=== PATIENT | female | born 1935 | race Caucasian/White ===

== ENCOUNTER → 2017-03-11 | Outpatient (CLI) | payer OTHER ==
[~2017-03-11] MED LIST: APIX2.5T PO; APIX5TAB PO; BENZ100C4 PO; CEP500 PO; CHOL10005 PO; CLAR-13 PO; CYAN50008 PO; ESTR2TAB26 PO; FURO-47 PO; GLUC100026 PO; HYDR-385 PO; HYDR-4309 PO; IBUP600T22 PO; LEVO175T42 PO; LEVO200T50 PO; LOR5/325 PO; MELO-205 PO; METH4TAB66 PO; MOD PO; MULT-1372 PO; OMEG-11 PO; OMEP-125 PO; PHEN100C82 PO; PNEU0.5D3 IM; POTA-23 PO; SULF-198 PO; [UNRECOGNIZED DRUG - REMARK] PO
[2017-03-11 11:54] LABS: PLATELET COUNT, AUTOMATED 281 K/uL (150-450)
== END ==
LOC: LAB 11:17
PROVIDERS: ATTEND Internal Medicine
DX: I10 Essential (primary) hypertension (principal); E03.9 Hypothyroidism, unspecified; I48.91 Unspecified atrial fibrillation; M19.90 Unspecified osteoarthritis, unspecified site; E11.9 Type 2 diabetes mellitus without complications; R56.9 Unspecified convulsions; R29.6 Repeated falls
CPT/HCPCS: 36415; 80185; 82040; 82247; 82310; 82374; 82435; 82565; 82947; 84075; 84132; 84155; 84295; 84443; 84450; 84460; 84520; 84550; 85025

== ENCOUNTER → 2017-04-09 | Outpatient (CLI) | payer OTHER ==
[~2017-04-09] MED LIST changes: +ACET500T68 PO; +CELE-1 PO; +CYAN100088 PO; +GLUC-396 PO; +HEMP PO; +LACT1CAP6 PO; +LOPE-111 PO; +[UNRECOGNIZED DRUG - CODE] PO; +[UNRECOGNIZED DRUG - OTHER] PO; +[UNRECOGNIZED DRUG - OTHER] TOP
[2017-04-09 13:46] LABS: PLATELET COUNT, AUTOMATED 321 K/uL (150-450)
== END ==
LOC: LAB 12:09
PROVIDERS: ATTEND Family Medicine
DX: I10 Essential (primary) hypertension (principal); E03.9 Hypothyroidism, unspecified; E53.8 Deficiency of other specified B group vitamins
CPT/HCPCS: 36415; 82040; 82247; 82310; 82374; 82435; 82565; 82607; 82947; 84075; 84132; 84155; 84295; 84443; 84450; 84460; 84520; 85025

== ENCOUNTER → 2017-04-24 | Outpatient (REF) | payer OTHER ==
[~2017-04-24] MED LIST changes: +DUL20 PO
== END ==
LOC: ZZSENDIN 12:50
PROVIDERS: ATTEND Family Medicine
DX: R19.7 Diarrhea, unspecified (principal)
CPT/HCPCS: 83630; 87045; 87205

== ENCOUNTER → 2017-06-16 | Outpatient (CLI) | payer OTHER ==
[2017-06-16 17:48] LABS: PLATELET COUNT, AUTOMATED 233 K/uL (150-450)
== END ==
LOC: LAB 16:29
PROVIDERS: ATTEND Family Medicine
DX: I10 Essential (primary) hypertension (principal); R29.6 Repeated falls; E03.9 Hypothyroidism, unspecified
CPT/HCPCS: 36415; 82040; 82247; 82310; 82374; 82435; 82565; 82947; 84075; 84132; 84155; 84295; 84443; 84450; 84460; 84520; 85025

== ENCOUNTER → 2017-12-02 | Outpatient (CLI) | payer OTHER ==
[~2017-12-02] MED LIST changes: +DICL100G39 TOP; +FLU180SY11 IM; -HYDR-4309 PO; +HYDR-653 PO; +POTA-28 PO
[2017-12-02 16:55] LABS: PLATELET COUNT, AUTOMATED 208 K/uL (150-450)
== END ==
LOC: LAB 16:05
PROVIDERS: ATTEND Family Medicine
DX: E03.9 Hypothyroidism, unspecified (principal); I10 Essential (primary) hypertension
CPT/HCPCS: 36415; 82040; 82247; 82310; 82374; 82435; 82565; 82947; 84075; 84132; 84155; 84295; 84443; 84450; 84460; 84520; 85025

== ENCOUNTER 2018-05-24 21:09 | Emergency (ER) | payer MEDICARE, OTHER ==
[~2018-05-24 21:09] MED LIST changes: -CIPR-344 PO
[2018-05-24] MEDS ORDERED: NS(*) 0.9% 1000 ML BAG 1,000 ML IV ONE (21:20)
[2018-05-24 22:35] LABS: PLATELET COUNT, AUTOMATED 283 K/uL (150-450)
[2018-05-24 23:16] VITALS: BP 165/76
--- NOTE | 2018-05-25 00:06 | ER Report ---
History and Physical Time Seen By MD: 21:12 Hx. of Stated Complaint: DIARRHEA FOR THE PAST 6 DAYS BUT TODAY SHE STATES THAT SHE HAS NOT BEEN ABLE TO GET IT TO STOP HPI/ROS CHIEF COMPLAINT: Diarrhea and weakness HISTORY OF PRESENT ILLNESS: 83-year-old female brought in by EMS from home complaining of weakness and diarrhea for 6 days. It is been worse the last 24 hours. She's been unable to get off of the toilet because of the chronic diarrhea. She is wheelchair-bound and has weakness in her right lower extremity. She had total paralysis 3 years ago. Both of her lower extremities secondary to back problems. Patient denies recent travel exposure to ill contacts or consumption of bad food. Patient additionally denies recent use of antibiotics. She lives alone at home. Patient notes no vomiting. She's been drinking water, trying to keep herself hydrated. REVIEW OF SYSTEMS: Respiratory: No cough, no dyspnea. Cardiovascular: No chest pain, no palpitations. Gastrointestinal: As above Musculoskeletal: No back pain. Allergies: Coded Allergies: No Known Drug Allergies (Unverified , 10/13/16) Home Meds Active Scripts Ciprofloxacin Hcl 500 Mg Tab (CIPRO 500 MG TAB) 500 Mg Tablet, 500 MG PO BID for infection, #14 Prov:ALEXIS VALDES DO 05/25/18 Phenytoin Sodium Extended (DILANTIN) 100 Mg Capsule, 2 CAP PO QDAY for 90 Days, #180 CAPSULE Prov:KASSY DORSEY MD 04/07/18 Furosemide (FUROSEMIDE) 40 Mg Tablet, 1 TAB PO DAILY PRN for edema for 90 Days, #90 TAB 1 Refill Prov:KASSY DORSEY MD 04/02/18 Potassium Chloride (POTASSIUM CHLORIDE) 10 Meq Tablet.er, 2 TAB PO QDAY PRN for edema for 90 Days, #180 TAB Take along with furosemide Prov:KASSY DORSEY MD 03/04/18 Levothyroxine Sodium (LEVOTHYROXINE SODIUM) 175 Mcg Tablet, 175 MCG PO QDAY for 90 Days, #90 TAB 4 Refills Prov:KASSY DORSEY MD 03/04/18 Diclofenac Sodium 1% Gel (VOLTAREN 1% GEL) 100 Gm Gel..gram., 2 GM TOP QID for knee osteoarthritis for 30 Days, #1 TUBE 4 Refills Prov:KASSY DORSEY MD 10/14/17 Duloxetine Hcl (CYMBALTA) 20 Mg Capcr, 1 CAP PO QDAY for 90 Days, #90 CAP 4 Refills Prov:KASSY DORSEY MD 09/22/17 Amiloride/Hctz (AMILORIDE HCL-HCTZ 5-50 MG TAB) 1 Each Tab, 1 EACH PO QDAY for 90 Days, #90 TAB 4 Refills Prov:KASSY DORSEY MD 08/11/17 Apixaban (ELIQUIS) 5 Mg Tablet, 1 TAB PO BID for 90 Days, #180 TAB 4 Refills Prov:KASSY DORSEY MD 07/21/17 Reported Medications Psyllium Seed (with Sugar) (Metamucil Powder) 575 Gm Powder, 2 TSP PO DAILY Increase to BID 04/10/17 Lactobacillus Combination No.4 (PROBIOTIC) 1 Each Capsule, 1 TABCHEW PO BID, CAPSULE 04/10/17 [Canna XL Top 50mg] No Conflict Check, 1 TATE TOP PRN 04/10/17 [Canna XL-Hemp 5mg] No Conflict Check, 1-2 CAP PO DAILY 04/10/17 Loperamide Hcl (LOPERAMIDE) 2 Mg Tablet, 1-2 TAB PO DIRECTED 2 tabs after loose stool, 1 tab after each subsequent loose stool(not to exceed 8 tabs daily) 04/10/17 Glucosa Kamara 2KCL/Chondroitin Kamara (GLUCOSAMINE CHONDROITIN CAPLET) 1 Each Tablet, 1 TAB PO DAILY 04/10/17 Acetaminophen (TYLENOL EXTRA STRENGTH) 500 Mg Tablet, 2 TAB PO BID, TAB 04/10/17 [place]-3 Fatty Acids/Fish Oil (FISH OIL 1,000 MG CAPSULE) 1 Each Capsule, 1 EACH PO DAILY 10/13/16 Multivitamin (DAILY VALUE) 1 Each Tablet, 1 EACH PO QDAY 02/22/15 Reviewed Nurses Notes: Yes Old Medical Records Reviewed: Yes Hx Smoking: No Smoking Status: Never Smoker Hx Substance Use Disorder: No Hx Alcohol Use: No Constitutional Vital Sign - Last 24 Hours 05/24/18 05/24/18 05/24/18 05/24/18 21:12 21:12 21:30 21:39 Temp 99.0 Pulse 79 78 Resp 18 B/P (MAP) 143/93 (110) 143/93 157/62 (93) Pulse Ox 92 91 O2 Delivery Room Air 4/05/24/18 05/24/18 05/24/18 23:16 23:30 23:35 23:50 Pulse 76 87 75 B/P (MAP) 165/76 (105) Pulse Ox 88 92 93 05/25/18 05/25/18 05/25/18 00:05 00:20 00:50 Pulse 81 ? Pulse Ox 89 Physical Exam Vital signs stable, low-grade fever 99 0, pulse ox normal. Skin warm, dry, pink General Appearance: The patient is alert, has no immediate need for airway protection and no current signs of toxicity. No acute distress, wasn't cooperative, interactive, alert and oriented HEENT: Pupils equal and round no injection. Oropharynx without redness or exudate. His number injure moist Respiratory: Chest is non tender, lungs are clear to auscultation. Cardiac: regular rate and rhythm Gastrointestinal: Abdomen is soft and non tender, no masses, bowel sounds normal. Musculoskeletal: Neck: Neck is supple and non tender. Extremities have full range of motion and are non tender. 2+ edema bilaterally, Skin: No rashes or lesions. DIFFERENTIAL DIAGNOSIS: After history and physical exam differential diagnosis was considered for weakness including but not limited to electrolyte abnormal ity, depression, anxiety, CVA, spinal cord abnormality, and infectious causes. Medical Decision Making Data Points Result Diagram: 05/24/18222305/24/182223 Laboratory Hematology Test 05/24/18 22:24 05/24/18 23:00 05/24/18 23:12 05/25/18 00:00 Red Blood Count 4.29 M/uL (4.17-5.56) Mean Corpuscular Volume 98.4 fL (80.0-96.0) Mean Corpuscular Hemoglobin 33.0 pg (26.0-33.0) Mean Corpuscular Hemoglobin Concent 33.5 g/dL (32.0-36.0) Red Cell Distribution Width 14.4 % (11.5-14.5) Mean Platelet Volume 8.3 fL (7.2-11.1) Neutrophils (%) (Auto) 73.9 % (39.4-72.5) Lymphocytes (%) (Auto) 11.8 % (17.6-49.6) Monocytes (%) (Auto) 9.1 % (4.1-12.4) Eosinophils (%) (Auto) 4.7 % (0.4-6.7) Basophils (%) (Auto) 0.5 % (0.3-1.4) Nucleated RBC Relative Count (auto) 0.0 /100WBC Neutrophils # (Auto) 8.1 K/uL (2.0-7.4) Lymphocytes # (Auto) 1.3 K/uL (1.3-3.6) Monocytes # (Auto) 1.0 K/uL (0.3-1.0) Eosinophils # (Auto) 0.5 K/uL (0.0-0.5) Basophils # (Auto) 0.1 K/uL (0.0-0.1) Nucleated RBC Absolute Count (auto) 0.00 K/uL Sodium Level 137 mmol/L (137-145) Potassium Level 4.1 mmol/L (3.5-5.0) Chloride Level 100 mmol/L (98-107) Carbon Dioxide Level 28 mmol/L (22-31) Blood Urea Nitrogen 32 mg/dl (7-18) Creatinine 0.80 mg/dl (0.52-1.04) Glomerular Filtration Rate Calc > 60.0 Random Glucose 107 mg/dl (75-110) Calcium Level 9.7 mg/dl (8.4-10.2) Total Bilirubin 0.3 mg/dl (0.2-1.3) Aspartate Amino Transf (AST/SGOT) 38 U/L (0-35) Alanine Aminotransferase (ALT/SGPT) 49 U/L (0-56) Alkaline Phosphatase 182 U/L (0-126) Total Protein 8.7 g/dl (6.3-8.2) Albumin 4.5 g/dl (3.5-5.0) Amylase Level 147 U/L (0-110) Lipase 205 U/L (23-300) Urine Color Liz Urine Clarity Turbid Urine pH 6.0 pH (4.8-9.5) Urine Specific Noti 1.012 Urine Protein 30 mg/dL (NEGATIVE) Urine Glucose (UA) Negative mg/dL (NEGATIVE) Urine Ketones Negative mg/dL (NEGATIVE) Urine Blood Small (NEGATIVE) Urine Nitrite Positive (NEGATIVE) Urine Bilirubin Negative (NEGATIVE) Urine Urobilinogen Negative mg/dL (0.2-1.9) Urine Leukocyte Esterase Large (NEGATIVE) Urine RBC 17 /HPF (0-2/HPF) Urine WBC 495 /HPF (0-5/HPF) Urine WBC Clumps Many /HPF Urine Squamous Epithelial Cells Many /LPF (</=FEW) Urine Bacteria Many /HPF (NONE-FEW) Urine Mucus Few /HPF (NONE-FEW) Urine Yeast (Budding) Moderate /HPF Stool Occult Blood (IFOB) Positive (NEGATIVE) Stool Leukocytes, Qualitative Positive Clostridium Difficile Toxin A & B Negative Clostridium difficile Antigen Negative Phenytoin (Dilantin) Level < 3.0 ug/ml Phenytoin Last Dose Date . Chemistry Test 05/24/18 22:24 05/24/18 23:00 05/24/18 23:12 05/25/18 00:00 White Blood Count 11.0 k/uL (4.5-11.0) Red Blood Count 4.29 M/uL (4.17-5.56) Hemoglobin 14.2 g/dL (12.0-16.0) Hematocrit 42.2 % (34.0-47.0) Mean Corpuscular Volume 98.4 fL (80.0-96.0) Mean Corpuscular Hemoglobin 33.0 pg (26.0-33.0) Mean Corpuscular Hemoglobin Concent 33.5 g/dL (32.0-36.0) Red Cell Distribution Width 14.4 % (11.5-14.5) Platelet Count 283 K/uL (150-450) Mean Platelet Volume 8.3 fL (7.2-11.1) Neutrophils (%) (Auto) 73.9 % (39.4-72.5) Lymphocytes (%) (Auto) 11.8 % (17.6-49.6) Monocytes (%) (Auto) 9.1 % (4.1-12.4) Eosinophils (%) (Auto) 4.7 % (0.4-6.7) Basophils (%) (Auto) 0.5 % (0.3-1.4) Nucleated RBC Relative Count (auto) 0.0 /100WBC Neutrophils # (Auto) 8.1 K/uL (2.0-7.4) Lymphocytes # (Auto) 1.3 K/uL (1.3-3.6) Monocytes # (Auto) 1.0 K/uL (0.3-1.0) Eosinophils # (Auto) 0.5 K/uL (0.0-0.5) Basophils # (Auto) 0.1 K/uL (0.0-0.1) Nucleated RBC Absolute Count (auto) 0.00 K/uL Glomerular Filtration Rate Calc > 60.0 Calcium Level 9.7 mg/dl (8.4-10.2) Total Bilirubin 0.3 mg/dl (0.2-1.3) Aspartate Amino Transf (AST/SGOT) 38 U/L (0-35) Alanine Aminotransferase (ALT/SGPT) 49 U/L (0-56) Alkaline Phosphatase 182 U/L (0-126) Total Protein 8.7 g/dl (6.3-8.2) Albumin 4.5 g/dl (3.5-5.0) Amylase Level 147 U/L (0-110) Lipase 205 U/L (23-300) Urine Color Liz Urine Clarity Turbid Urine pH 6.0 pH (4.8-9.5) Urine Specific Noti 1.012 Urine Protein 30 mg/dL (NEGATIVE) Urine Glucose (UA) Negative mg/dL (NEGATIVE) Urine Ketones Negative mg/dL (NEGATIVE) Urine Blood Small (NEGATIVE) Urine Nitrite Positive (NEGATIVE) Urine Bilirubin Negative (NEGATIVE) Urine Urobilinogen Negative mg/dL (0.2-1.9) Urine Leukocyte Esterase Large (NEGATIVE) Urine RBC 17 /HPF (0-2/HPF) Urine WBC 495 /HPF (0-5/HPF) Urine WBC Clumps Many /HPF Urine Squamous Epithelial Cells Many /LPF (</=FEW) Urine Bacteria Many /HPF (NONE-FEW) Urine Mucus Few /HPF (NONE-FEW) Urine Yeast (Budding) Moderate /HPF Stool Occult Blood (IFOB) Positive (NEGATIVE) Stool Leukocytes, Qualitative Positive Clostridium Difficile Toxin A & B Negative Clostridium difficile Antigen Negative Phenytoin (Dilantin) Level < 3.0 ug/ml Phenytoin Last Dose Date . Toxicology Test 05/25/18 00:00 Phenytoin (Dilantin) Level < 3.0 ug/ml Phenytoin Last Dose Date . Urinalysis Test 05/24/18 23:00 Urine Color Liz Urine Clarity Turbid Urine pH 6.0 pH (4.8-9.5) Urine Specific Noti 1.012 Urine Protein 30 mg/dL (NEGATIVE) Urine Glucose (UA) Negative mg/dL (NEGATIVE) Urine Ketones Negative mg/dL (NEGATIVE) Urine Blood Small (NEGATIVE) Urine Nitrite Positive (NEGATIVE) Urine Bilirubin Negative (NEGATIVE) Urine Urobilinogen Negative mg/dL (0.2-1.9) Urine Leukocyte Esterase Large (NEGATIVE) Urine RBC 17 /HPF (0-2/HPF) Urine WBC 495 /HPF (0-5/HPF) Urine WBC Clumps Many /HPF Urine Squamous Epithelial Cells Many /LPF (</=FEW) Urine Bacteria Many /HPF (NONE-FEW) Urine Mucus Few /HPF (NONE-FEW) Urine Yeast (Budding) Moderate /HPF Microbiology Microbiology Date/Time Source Procedure Growth Status 05/24/18 23:12 Stool Gram Stain - Final Resulted 05/24/18 23:12 Stool Stool Culture - Preliminary NORMAL SO FAR, CULTURE SET UP LATE, C... Resulted 05/25/18 00:00 Clean Catch Midstream Ur Urine Culture - Preliminary Gram Negative Miguel A Resulted ED Course/Re-evaluation Clinical Indication for ER IV: Hydration, IV Access ED Course Patient was admitted to an examination room by EMS. H&P was done. The differential diagnoses was considered. Patient was treated with IV fluid hydration. Diagnostic studies were sent off. She has a urinary tract infection, and infectious diarrhea. I offered the patient admission because I think she is very weak and will not be able to care for herself well at home. She has severe weakness in her right lower extremity and is barely able to stand. She gets around with a walker and a wheelchair. Very insistent on going home. She'll be treated with Cipro for urinary tract infection, and infectious diarrhea. She is advised to increase her fluid intake. Patient advised a low threshold to return for any worsening. Decision to Disposition Date: May 25, 2018 Decision to Disposition Time: 00:35 Depart Departure Latest Vital Signs Vital Signs Date Time Temp Pulse Resp B/P (MAP) Pulse Ox O2 Delivery O2 Flow Rate FiO2 05/25/18 00:50 ??? 05/25/18 00:05 89 05/24/18 23:16 165/76 (105) 05/24/18 21:12 99.0 18 Room Air Impression: Primary Impression: Infectious diarrhea Additional Impressions: Urinary tract infection Hypertension Condition: Improved Disposition: HOME OR SELF-CARE Referrals: KASSY DORSEY MD (PCP) New Scripts Ciprofloxacin Hcl 500 Mg Tab (CIPRO 500 MG TAB) 500 Mg Tablet 500 MG PO BID for infection, #14 Prov: ALEXIS VALDES DO 05/25/18 Patient Instructions: Acute Diarrhea (ED), Clear Liquid Diet (ED), Urinary Tract Infection in Women (ED) Additional Instructions: Follow clear liquid diet for 48 hours, then advance to the brat diet, bananas, rice, applesauce and toast Follow-up with your primary care doctor in 2-3 days if unimproved Return to the ER for any worsening Problem Qualifiers Additional Impressions: Urinary tract infection Urinary tract infection type: acute cystitis Hematuria presence: without hematuria Qualified Codes: N30.00 - Acute cystitis without hematuria ALEXIS VALDES DO May 25, 2018 00:06
[2018-05-25] MEDS ORDERED: CIPROFLOXACIN 500 MG TAB PO ONE (00:35)
[2018-05-25] MEDS ORDERED: CIPR-344 PO (00:36)
== END 2018-05-25 01:05 | disposition home or self-care (01) ==
LOC: ER 21:22
DX: N30.00 Acute cystitis without hematuria (principal); A09 Infectious gastroenteritis and colitis, unspecified; I10 Essential (primary) hypertension
CPT/HCPCS: 80185; 81001; 82150; 82274; 83630; 83690; 85025; 87045; 87077; 87088; 87186; 87205; 87324; 87449; 96360; 99283; A9270; J7030; 82040; 82247; 82310; 82374; 82435; 82565; 82947; 84075; 84132; 84155; 84295; 84450; 84460; 84520

== ENCOUNTER → 2018-05-24 | Outpatient (CLI) | payer MEDICARE ==
[~2018-05-24] MED LIST changes: +CIPR-344 PO
== END ==
LOC: AMB 20:52
PROVIDERS: ATTEND Nurse Practitioner
DX: R19.7 Diarrhea, unspecified (principal)
CPT/HCPCS: A0425; A0429

== ENCOUNTER → 2018-05-25 | Outpatient (CLI) | payer MEDICARE ==
[~2018-05-25] MED LIST changes: +CIPR-344 PO
== END ==
LOC: AMB 01:02
PROVIDERS: ATTEND Nurse Practitioner
DX: E86.0 Dehydration (principal); R53.1 Weakness
CPT/HCPCS: A0425; A0428

== ENCOUNTER → 2018-07-07 | Outpatient (CLI) | payer OTHER ==
[~2018-07-07] MED LIST changes: +DIPH-1 PO
[2018-07-07 12:55] LABS: PLATELET COUNT, AUTOMATED 343 K/uL (150-450)
== END ==
LOC: LAB 12:42
PROVIDERS: ATTEND Family Medicine
DX: E03.9 Hypothyroidism, unspecified (principal); I10 Essential (primary) hypertension
CPT/HCPCS: 36415; 82310; 82374; 82435; 82565; 82947; 84132; 84295; 84443; 84520; 85025

== ENCOUNTER 2018-07-24 09:53 | Emergency (ER) | payer OTHER ==
--- NOTE | 2018-07-24 09:52 | ER Report ---
History and Physical Time Seen By MD: 10:18 HPI/ROS CHIEF COMPLAINT: Diarrhea HISTORY OF PRESENT ILLNESS: Patient is an 83-year-old female who states that she's been having watery diarrhea sometimes up to more than 10 or more episodes a day for the past few weeks. She has been seen by her primary care provider who recommended starting a [place] diet as well as starting Lomotil which patient states was initially working however she currently has no more this medication. She denies any recent travel history or antibiotic use. Last antibiotic use was in May 2018 for a "colitis". She is denying any abdominal pain. She denies nausea vomiting or diarrhea. She denies fevers or chills. She denies any chest pain or shortness of breath. Patient states that she is having incontinence of stool. She denies any specific triggers states that she can go hours without a bowel movement but sometimes has frequent bowel movements minutes after she had her last one. She is not on any laxatives. She does take Lasix for peripheral edema. She also is on potassium supplementation. REVIEW OF SYSTEMS: Constitutional: No fever, no chills. Eyes: No discharge. ENT: No sore throat. Cardiovascular: No chest pain, no palpitations. Respiratory: No cough, no shortness of breath. Gastrointestinal: No abdominal pain, no nausea, no vomiting, watery diarrhea Genitourinary: No hematuria. Musculoskeletal: No back pain. Skin: No rashes. Neurological: No headache. Allergies: Coded Allergies: No Known Drug Allergies (Unverified , 10/13/16) Home Meds Active Scripts Diphenoxylate Hcl/Atropine (LOMOTIL TABLET) 1 Each Tablet, 1 EACH PO Q4H PRN for DIARRHEA MDD 8 tabs, #16 TAB 0 Refills Prov:JUSTYN MYERS MD 07/24/18 Diphenoxylate Hcl/Atropine (LOMOTIL TABLET) 1 Each Tablet, 1 TAB PO BID PRN for DIARRHEA for 90 Days, #180 TAB Prov:KASSY DORSEY MD 07/15/18 Apixaban (ELIQUIS) 5 Mg Tablet, 1 TAB PO BID for 90 Days, #180 TAB 4 Refills Prov:KASSY DORSEY MD 07/13/18 Phenytoin Sodium Extended (DILANTIN) 100 Mg Capsule, 2 CAP PO QDAY for 90 Days, #180 CAPSULE 1 Refill Prov:KASSY DORSEY MD 07/09/18 Potassium Chloride (POTASSIUM CHLORIDE) 10 Meq Tablet.er, 3 TAB PO QDAY PRN for edema for 90 Days, #180 TAB Take along with furosemide Prov:KASSY DORSEY MD 07/07/18 Amiloride/Hctz (AMILORIDE HCL-HCTZ 5-50 MG TAB) 1 Each Tab, 0.5 TAB PO QDAY for 90 Days, #90 TAB 4 Refills Prov:KASSY DORSEY MD 07/07/18 Omeprazole (OMEPRAZOLE) 20 Mg Capsule.dr, 1 CAP PO DAILY for 90 Days, #90 CAP Prov:KASSY DORSEY MD 07/07/18 Diclofenac Sodium 1% Gel (VOLTAREN 1% GEL) 100 Gm Gel..gram., 2 GM TOP QID for knee osteoarthritis for 30 Days, #1 TUBE 4 Refills Prov:KASSY DORSEY MD 07/07/18 Furosemide (FUROSEMIDE) 40 Mg Tablet, 1 TAB PO DAILY PRN for edema for 90 Days, #90 TAB 1 Refill Prov:KASSY DORSEY MD 04/02/18 Levothyroxine Sodium (LEVOTHYROXINE SODIUM) 175 Mcg Tablet, 175 MCG PO QDAY for 90 Days, #90 TAB 4 Refills Prov:KASSY DORSEY MD 03/04/18 Duloxetine Hcl (CYMBALTA) 20 Mg Capcr, 1 CAP PO QDAY for 90 Days, #90 CAP 4 Refills Prov:KASSY DORSEY MD 09/22/17 Reported Medications Psyllium Seed (with Sugar) (Metamucil Powder) 575 Gm Powder, 2 TSP PO DAILY Increase to BID 04/10/17 Lactobacillus Combination No.4 (PROBIOTIC) 1 Each Capsule, 1 TABCHEW PO BID, CAPSULE 04/10/17 [Canna XL Top 50mg] No Conflict Check, 1 TATE TOP PRN 04/10/17 [Canna XL-Hemp 5mg] No Conflict Check, 1-2 CAP PO DAILY 04/10/17 Loperamide Hcl (LOPERAMIDE) 2 Mg Tablet, 1-2 TAB PO DIRECTED 2 tabs after loose stool, 1 tab after each subsequent loose stool(not to exceed 8 tabs daily) 04/10/17 Glucosa Kamara 2KCL/Chondroitin Kamara (GLUCOSAMINE CHONDROITIN CAPLET) 1 Each Tablet, 1 TAB PO DAILY 04/10/17 Acetaminophen (TYLENOL EXTRA STRENGTH) 500 Mg Tablet, 2 TAB PO BID, TAB 04/10/17 [place]-3 Fatty Acids/Fish Oil (FISH OIL 1,000 MG CAPSULE) 1 Each Capsule, 1 EACH PO DAILY 10/13/16 Multivitamin (DAILY VALUE) 1 Each Tablet, 1 EACH PO QDAY 02/22/15 Past Medical/Surgical History Past medical history for seizures, glaucoma, hypertension, osteoarthritis, hypothyroidism, elevated body mass index, cholecystectomy, hysterectomy, nephrectomy, carpal tunnel release. Hx Smoking: No Smoking Status: Never Smoker Hx Substance Use Disorder: No Hx Alcohol Use: No Constitutional Vital Sign - Last 24 Hours 07/24/18 07/24/18 07/24/18 07/24/18 09:53 09:53 09:54 10:00 Temp 99.2 Pulse 91 90 Resp 16 B/P (MAP) 120/82 120/82 (95) 119/48 (71) Pulse Ox 90 O2 Delivery Room Air 07/24/18 07/24/18 07/24/18 07/24/18 10:13 10:30 10:33 10:53 Pulse 79 74 91 B/P (MAP) 113/49 (70) Pulse Ox 96 96 07/24/18 07/24/18 07/24/18 07/24/18 11:00 11:13 11:33 11:40 Pulse 88 88 78 B/P (MAP) 119/52 (74) Pulse Ox 81 07/24/18 07/24/18 07/24/18 07/24/18 12:20 12:40 13:05 13:20 Pulse 91 88 66 B/P (MAP) 123/59 (80) Pulse Ox 93 Physical Exam General/Constitutional: Patient is awake, alert, nontoxic and in no acute respiratory distress. Elevated body mass index Head: Normocephalic and atraumatic. Eyes: Conjunctival clear, Sclera are clear and anicteric. Ears:External canals are clear. Tympanic membranes are clear with normal landmarks and light reflex. Nares: No rhinorrhea or bleeding. Turbinates are pink and moist. Oropharyngeal: Mucous membranes are moist. There is no pharyngeal erythema or exudate. There are no palatal petechiae. Uvula is midline and symmetrical. Neck: Supple, no adenopathy. Cardiovascular: Heart is regular rate and rhythm without audible murmurs, rubs or gallops. Pulmonary: Lungs are clear to auscultation bilaterally. There are no wheezes, rales, or rhonchi. Chest rise is symmetrical Abdomen: Soft, protuberant, nontender no guarding or rebound tenderness increased bowel sounds. Extremities: No gross deformities, No peripheral cyanosis. Able to move all 4 extremities. Neuro: Alert and oriented X3, Skin: No rashes, skin is warm dry and well perfused. Medical Decision Making Data Points Result Diagram: 07/24/18 1053 07/24/18 1053 Laboratory Hematology Test 07/24/18 10:53 Red Blood Count 3.54 M/uL (4.17-5.56) Mean Corpuscular Volume 98.8 fL (80.0-96.0) Mean Corpuscular Hemoglobin 33.5 pg (26.0-33.0) Mean Corpuscular Hemoglobin Concent 33.9 g/dL (32.0-36.0) Red Cell Distribution Width 14.3 % (11.5-14.5) Mean Platelet Volume 7.9 fL (7.2-11.1) Neutrophils (%) (Auto) 61.7 % (39.4-72.5) Lymphocytes (%) (Auto) 18.8 % (17.6-49.6) Monocytes (%) (Auto) 14.1 % (4.1-12.4) Eosinophils (%) (Auto) 4.5 % (0.4-6.7) Basophils (%) (Auto) 0.9 % (0.3-1.4) Nucleated RBC Relative Count (auto) 0.0 /100WBC Neutrophils # (Auto) 3.4 K/uL (2.0-7.4) Lymphocytes # (Auto) 1.0 K/uL (1.3-3.6) Monocytes # (Auto) 0.8 K/uL (0.3-1.0) Eosinophils # (Auto) 0.2 K/uL (0.0-0.5) Basophils # (Auto) 0.0 K/uL (0.0-0.1) Nucleated RBC Absolute Count (auto) 0.00 K/uL Sodium Level 139 mmol/L (137-145) Potassium Level 3.7 mmol/L (3.5-5.0) Chloride Level 100 mmol/L (98-107) Carbon Dioxide Level 28 mmol/L (22-31) Blood Urea Nitrogen 22 mg/dl (7-18) Creatinine 0.80 mg/dl (0.52-1.04) Glomerular Filtration Rate Calc > 60.0 Random Glucose 91 mg/dl (75-110) Calcium Level 8.7 mg/dl (8.4-10.2) Total Bilirubin 0.6 mg/dl (0.2-1.3) Aspartate Amino Transf (AST/SGOT) 106 U/L (0-35) Alanine Aminotransferase (ALT/SGPT) 120 U/L (0-56) Alkaline Phosphatase 230 U/L (0-126) Total Protein 7.2 g/dl (6.3-8.2) Albumin 3.5 g/dl (3.5-5.0) Lipase 54 U/L (23-300) Chemistry Test 07/24/18 10:53 White Blood Count 5.5 k/uL (4.5-11.0) Red Blood Count 3.54 M/uL (4.17-5.56) Hemoglobin 11.9 g/dL (12.0-16.0) Hematocrit 35.0 % (34.0-47.0) Mean Corpuscular Volume 98.8 fL (80.0-96.0) Mean Corpuscular Hemoglobin 33.5 pg (26.0-33.0) Mean Corpuscular Hemoglobin Concent 33.9 g/dL (32.0-36.0) Red Cell Distribution Width 14.3 % (11.5-14.5) Platelet Count 270 K/uL (150-450) Mean Platelet Volume 7.9 fL (7.2-11.1) Neutrophils (%) (Auto) 61.7 % (39.4-72.5) Lymphocytes (%) (Auto) 18.8 % (17.6-49.6) Monocytes (%) (Auto) 14.1 % (4.1-12.4) Eosinophils (%) (Auto) 4.5 % (0.4-6.7) Basophils (%) (Auto) 0.9 % (0.3-1.4) Nucleated RBC Relative Count (auto) 0.0 /100WBC Neutrophils # (Auto) 3.4 K/uL (2.0-7.4) Lymphocytes # (Auto) 1.0 K/uL (1.3-3.6) Monocytes # (Auto) 0.8 K/uL (0.3-1.0) Eosinophils # (Auto) 0.2 K/uL (0.0-0.5) Basophils # (Auto) 0.0 K/uL (0.0-0.1) Nucleated RBC Absolute Count (auto) 0.00 K/uL Glomerular Filtration Rate Calc > 60.0 Calcium Level 8.7 mg/dl (8.4-10.2) Total Bilirubin 0.6 mg/dl (0.2-1.3) Aspartate Amino Transf (AST/SGOT) 106 U/L (0-35) Alanine Aminotransferase (ALT/SGPT) 120 U/L (0-56) Alkaline Phosphatase 230 U/L (0-126) Total Protein 7.2 g/dl (6.3-8.2) Albumin 3.5 g/dl (3.5-5.0) Lipase 54 U/L (23-300) ED Course/Re-evaluation ED Course Plan at this time will be to obtain stool culture if patient is able to give a sample. We'll check CBC CMP lipase will also check CT scan of the abdomen and pelvis to look for signs of infectious colitis. The patient has not had a bowel movement yet in the emergency department. She does feel some rectal pressure and is trying to go currently. She states that her liver enzymes have been chronically elevated and this is not a new problem for her. Awaiting results of CT scan Decision to Disposition Date: Jul 24, 2018 Decision to Disposition Time: 12:47 Depart Departure Latest Vital Signs Vital Signs Date Time Temp Pulse Resp B/P (MAP) Pulse Ox O2 Delivery O2 Flow Rate FiO2 07/24/18 13:20 66 93 07/24/18 13:05 123/59 (80) 07/24/18 09:53 99.2 16 Room Air Impression: Primary Impression: Diarrhea Condition: Improved Disposition: HOME OR SELF-CARE Referrals: KASSY DORSEY MD (PCP) follow up in 1 -2 weeks for recheck of diarrhea symptoms New Scripts Diphenoxylate Hcl/Atropine (LOMOTIL TABLET) 1 Each Tablet 1 EACH PO Q4H PRN for DIARRHEA MDD 8 tabs, #16 TAB 0 Refills Prov: JUSTYN MYERS MD 07/24/18 Patient Instructions: Acute Diarrhea (GEN) Problem Qualifiers Primary Impression: Diarrhea Diarrhea type: unspecified type Qualified Codes: R19.7 - Diarrhea, unspecified JUSTYN MYERS MD Jul 24, 2018 09:52
[2018-07-24] MEDS ORDERED: NS(*) 0.9% 1000 ML BAG 1,000 ML IV ONE (10:16)
[2018-07-24] MEDS ORDERED: DIPHENOX/ATROPINE 2.5-0.025MG PO ONE (10:20)
[2018-07-24] MEDS ORDERED: IOPAMIDOL 76% 100 ML INFUS BTL 100 ML ONE (10:28)
[2018-07-24 11:08] LABS: PLATELET COUNT, AUTOMATED 270 K/uL (150-450)
--- NOTE | 2018-07-24 12:48 | RADIOLOGY IMAGING REPORT ---
FACILITY: [facility] [place] PATIENT NAME: Sandra Deal : 1935 MR: [id number] V: [id number] EXAM DATE: ORDERING PHYSICIAN: JUSTYN MYERS TECHNOLOGIST: Location: [facility] Patient: Sandra Deal : 1935 Visit/Account:[id number] Date of Sevice: 07/24/2018 CT ABDOMEN PELVIS W/ CON History: 83-year-old female with chronic paralysis of lower extremities and recent onset of diarrhea. . Technique: CT images were obtained through the abdomen and pelvis with intravenous contrast using: I sovue-370 80 mls. Coronal and sagittal reformations were then created. One of the following dose optimization techniques was utilized in the performance of this exam: Autom ated exposure control; adjustment of the mA and/or kV according to the patient's size; or use of an i terative reconstruction technique. Specific details can be referenced in the facility's radiology C T exam operational policy. Comparison study: None Findings: Lung bases: Negative Liver: There is no finding of focal lesion in the liver to suggest metastatic disease.There is no hep atic or portal vein thrombosis. Biliary: The gallbladder surgically absent. There is intra and extrahepatic ductal dilatation. The common bile duct measures over 2 cm in diameter. The possibility of an obstructing lesion is raised, but no gallstone is seen. The pancreatic or duodenal mass is not seen. There is no pancreatic duct al dilatation. Spleen: Negative. Adrenals: Negative Pancreas: There is fatty atrophy of the pancreas. There is no pancreatic mass and there is no pancre atic ductal dilatation.. Kidneys/genitourinary/retroperitoneum: There is no finding of solid mass in the right or left kidney. There is no hydronephrosis or nephrolithiasis. In the right side there is a small posterior cyst. There is no retroperitoneal lymphadenopathy. Bowel/peritoneum/mesentery: There are no dilated loops of large or small bowel to suggest ileus or ob struction. There is no diverticulosis. There is no thickening of bowel wall to suggest inflammatory bowel disease, enteritis or colitis. Pelvic/genital urinary: The bladder is unremarkable. The uterus is not seen. The ovaries are not se en. Vessels: There is prominent evidence chronic calcification of the aorta and iliac vessels.. Lymph node: Negative. Body wall/bones: There is fatty replacement of the gluteal and lower extremity muscles in this patien t with known paralysis. There are discogenic degenerative changes in the lumbar spine. Peritoneal cavity: No findings of ascites or pneumoperitoneum. IMPRESSION: 1. In this patient status post cholecystectomy there is intra and extra hepatic bile duct dilatation . The common bile duct measures greater than 2 cm in diameter, but an obstructing mass or stone smooth ot be seen. Correlation with LFTs is recommended. 2. There are no findings to explain this patient's diarrhea. There are no sites of bowel wall thick ening. 3. Fatty replacement of the musculature related to the patient's known paralysis. 4. Nonvisualization of the uterus and ovaries. Results were called to JUSTYN MYERS M.D. At 07/24/2018 12:43 PM. Report Dictated By: David Crenshaw MD at 07/24/2018 12:30 PM Report E-Signed By: David Crenshaw MD at 07/24/2018 12:43 PM WSN:[id number]
[2018-07-24] MEDS ORDERED: DIPH-1 PO (12:55)
[2018-07-24 13:05] VITALS: BP 123/59
== END 2018-07-24 13:57 | disposition home or self-care (01) ==
LOC: ER 10:01
DX: R19.7 Diarrhea, unspecified (principal)
CPT/HCPCS: 74177; 83690; 85025; 96360; 96361; 99284; J7030; Q9967; 82040; 82247; 82310; 82374; 82435; 82565; 82947; 84075; 84132; 84155; 84295; 84450; 84460; 84520

== ENCOUNTER → 2018-07-24 | Outpatient (CLI) | payer MEDICARE, OTHER ==
[~2018-07-24] MED LIST changes: -OMEP-125 PO; +OMEP-126 PO
== END ==
LOC: AMB 13:49
PROVIDERS: ATTEND Nurse Practitioner
DX: R19.7 Diarrhea, unspecified (principal)
CPT/HCPCS: A0425; A0428

== ENCOUNTER → 2018-07-24 | Outpatient (CLI) | payer MEDICARE, OTHER | LOC: AMB 09:37 | PROVIDERS: ATTEND Nurse Practitioner | DX: R19.7 Diarrhea, unspecified (principal) | CPT/HCPCS: A0425; A0429 ==

== ENCOUNTER 2018-08-14 15:30 | Emergency (ER) | payer OTHER ==
[~2018-08-14 15:30] MED LIST changes: -PANT20TA27 PO
[2018-08-14] MEDS ORDERED: NS(*) 0.9% 1000 ML BAG 1,000 ML IV ONE ×2 (15:45→17:00)
--- NOTE | 2018-08-14 16:03 | ER Report ---
History and Physical Time Seen By MD: 15:43 Hx. of Stated Complaint: patient has chronic loose bowels. Now has an increase in weakness. HPI/ROS CHIEF COMPLAINT: Weakness HISTORY OF PRESENT ILLNESS: 83-year-old female returns emergency department sooner numerous times for diarrheas is also followed by her primary care for the same complaints she's had multiple episodes of loose stool sick CAT scans performed which showed no abnormality this was done several weeks prior to presentation she has no associated pain. Patient does have a history of baseline congestive heart failure with bilateral lower edematous edema which she does take Lasix for supplemental potassium. Patient has no chest pain or shortness of breath or any additional complaints and is noticed that she was feeling more weak and more dehydrated lately is looking for fluid resuscitation. Patient has no additional complaints at this time. Patient is planned placed on Lamictal chronically and has had her dose adjusted the last couple weeks. REVIEW OF SYSTEMS: Respiratory: No cough, no dyspnea. Cardiovascular: No chest pain, no palpitations. Gastrointestinal: No vomiting, no abdominal pain. Musculoskeletal: No back pain. Remainder of the 14 system rev: Yes Allergies: Coded Allergies: No Known Drug Allergies (Unverified , 10/13/16) Home Meds Active Scripts Psyllium Husk (METAMUCIL) 0.52 Gm Capsule, 2-4 CAP PO BID PRN for BID for 30 Days, CAPSULE 2 CAP BID FOR ONE WEEK THAN 4 CAP BID Prov:KASSY DORSEY MD 08/04/18 Diphenoxylate Hcl/Atropine (LOMOTIL TABLET) 1 Each Tablet, 1 EACH PO Q4H PRN for DIARRHEA MDD 8 tabs, #16 TAB 0 Refills Prov:JUSTYN MYERS MD 07/24/18 Diphenoxylate Hcl/Atropine (LOMOTIL TABLET) 1 Each Tablet, 1 TAB PO BID PRN for DIARRHEA for 90 Days, #180 TAB Prov:KASSY DORSEY MD 07/15/18 Apixaban (ELIQUIS) 5 Mg Tablet, 1 TAB PO BID for 90 Days, #180 TAB 4 Refills Prov:KASSY DORSEY MD 07/13/18 Phenytoin Sodium Extended (DILANTIN) 100 Mg Capsule, 2 CAP PO QDAY for 90 Days, #180 CAPSULE 1 Refill Prov:KASSY DORSEY MD 07/09/18 Potassium Chloride (POTASSIUM CHLORIDE) 10 Meq Tablet.er, 3 TAB PO QDAY PRN for edema for 90 Days, #180 TAB Take along with furosemide Prov:KASSY DORSEY MD 07/07/18 Amiloride/Hctz (AMILORIDE HCL-HCTZ 5-50 MG TAB) 1 Each Tab, 0.5 TAB PO QDAY for 90 Days, #90 TAB 4 Refills Prov:KASSY DORSEY MD 07/07/18 Omeprazole (OMEPRAZOLE) 20 Mg Capsule.dr, 1 CAP PO DAILY for 90 Days, #90 CAP Prov:KASSY DORSEY MD 07/07/18 Diclofenac Sodium 1% Gel (VOLTAREN 1% GEL) 100 Gm Gel..gram., 2 GM TOP QID for knee osteoarthritis for 30 Days, #1 TUBE 4 Refills Prov:KASSY DORSEY MD 07/07/18 Furosemide (FUROSEMIDE) 40 Mg Tablet, 1 TAB PO DAILY PRN for edema for 90 Days, #90 TAB 1 Refill Prov:KASSY DORSEY MD 04/02/18 Levothyroxine Sodium (LEVOTHYROXINE SODIUM) 175 Mcg Tablet, 175 MCG PO QDAY for 90 Days, #90 TAB 4 Refills Prov:KASSY DORSEY MD 03/04/18 Duloxetine Hcl (CYMBALTA) 20 Mg Capcr, 1 CAP PO QDAY for 90 Days, #90 CAP 4 Refills Prov:KASSY DORSEY MD 09/22/17 Reported Medications Lactobacillus Combination No.4 (PROBIOTIC) 1 Each Capsule, 1 TABCHEW PO BID, CAPSULE 04/10/17 [Canna XL Top 50mg] No Conflict Check, 1 TATE TOP PRN 04/10/17 [Canna XL-Hemp 5mg] No Conflict Check, 1-2 CAP PO DAILY 04/10/17 Loperamide Hcl (LOPERAMIDE) 2 Mg Tablet, 1-2 TAB PO DIRECTED 2 tabs after loose stool, 1 tab after each subsequent loose stool(not to exceed 8 tabs daily) 04/10/17 Glucosa Kamara 2KCL/Chondroitin Kamara (GLUCOSAMINE CHONDROITIN CAPLET) 1 Each Tablet, 1 TAB PO DAILY 04/10/17 Acetaminophen (TYLENOL EXTRA STRENGTH) 500 Mg Tablet, 2 TAB PO BID, TAB 04/10/17 [place]-3 Fatty Acids/Fish Oil (FISH OIL 1,000 MG CAPSULE) 1 Each Capsule, 1 EACH PO DAILY 10/13/16 Multivitamin (DAILY VALUE) 1 Each Tablet, 1 EACH PO QDAY 02/22/15 Reviewed Nurses Notes: Yes Old Medical Records Reviewed: Yes Hx Smoking: No Smoking Status: Never Smoker Hx Substance Use Disorder: No Hx Alcohol Use: No Constitutional Vital Sign - Last 24 Hours 08/14/18 08/14/18 15:37 15:49 Temp 98.2 Pulse 91 Resp 16 Pulse Ox 90 O2 Delivery Room Air O2 Flow Rate 2.0 Physical Exam General Appearance: The patient is alert, has no immediate need for airway protection and no current signs of toxicity. [ ] Eyes: Pupils equal and round no injection. Respiratory: Chest is non tender, lungs are clear to auscultation. Cardiac: regular rate and rhythm [ ] Gastrointestinal: Abdomen is soft and non tender, no masses, bowel sounds normal. Musculoskeletal: Neck: Neck is supple and non tender. Treatment is +2 pitting edema bilaterally Skin: No rashes or lesions. [ ] DIFFERENTIAL DIAGNOSIS: After history and physical exam differential diagnosis was considered for CHF exacerbation dehydration progressive diarrhea Medical Decision Making Data Points Result Diagram: 08/14/18 1555 08/14/18 1555 Laboratory Hematology Test 08/14/18 15:55 Red Blood Count 3.49 M/uL (4.17-5.56) Mean Corpuscular Volume 97.3 fL (80.0-96.0) Mean Corpuscular Hemoglobin 33.3 pg (26.0-33.0) Mean Corpuscular Hemoglobin Concent 34.2 g/dL (32.0-36.0) Red Cell Distribution Width 14.9 % (11.5-14.5) Mean Platelet Volume 7.2 fL (7.2-11.1) Neutrophils (%) (Auto) 64.2 % (39.4-72.5) Lymphocytes (%) (Auto) 14.7 % (17.6-49.6) Monocytes (%) (Auto) 16.6 % (4.1-12.4) Eosinophils (%) (Auto) 3.7 % (0.4-6.7) Basophils (%) (Auto) 0.8 % (0.3-1.4) Nucleated RBC Relative Count (auto) 0.0 /100WBC Neutrophils # (Auto) 5.2 K/uL (2.0-7.4) Lymphocytes # (Auto) 1.2 K/uL (1.3-3.6) Monocytes # (Auto) 1.3 K/uL (0.3-1.0) Eosinophils # (Auto) 0.3 K/uL (0.0-0.5) Basophils # (Auto) 0.1 K/uL (0.0-0.1) Nucleated RBC Absolute Count (auto) 0.00 K/uL Sodium Level 137 mmol/L (137-145) Potassium Level 3.0 mmol/L (3.5-5.0) Chloride Level 97 mmol/L (98-107) Carbon Dioxide Level 28 mmol/L (22-31) Blood Urea Nitrogen 31 mg/dl (7-18) Creatinine 1.00 mg/dl (0.52-1.04) Glomerular Filtration Rate Calc 52.7 Random Glucose 119 mg/dl (75-110) Calcium Level 8.6 mg/dl (8.4-10.2) Total Bilirubin 0.5 mg/dl (0.2-1.3) Aspartate Amino Transf (AST/SGOT) 47 U/L (0-35) Alanine Aminotransferase (ALT/SGPT) 67 U/L (0-56) Alkaline Phosphatase 158 U/L (0-126) Troponin I 0.017 ng/ml B-Type Natriuretic Peptide 207 pg/ml (0-100) Total Protein 7.5 g/dl (6.3-8.2) Albumin 3.4 g/dl (3.5-5.0) Chemistry Test 08/14/18 15:55 White Blood Count 8.1 k/uL (4.5-11.0) Red Blood Count 3.49 M/uL (4.17-5.56) Hemoglobin 11.6 g/dL (12.0-16.0) Hematocrit 33.9 % (34.0-47.0) Mean Corpuscular Volume 97.3 fL (80.0-96.0) Mean Corpuscular Hemoglobin 33.3 pg (26.0-33.0) Mean Corpuscular Hemoglobin Concent 34.2 g/dL (32.0-36.0) Red Cell Distribution Width 14.9 % (11.5-14.5) Platelet Count 394 K/uL (150-450) Mean Platelet Volume 7.2 fL (7.2-11.1) Neutrophils (%) (Auto) 64.2 % (39.4-72.5) Lymphocytes (%) (Auto) 14.7 % (17.6-49.6) Monocytes (%) (Auto) 16.6 % (4.1-12.4) Eosinophils (%) (Auto) 3.7 % (0.4-6.7) Basophils (%) (Auto) 0.8 % (0.3-1.4) Nucleated RBC Relative Count (auto) 0.0 /100WBC Neutrophils # (Auto) 5.2 K/uL (2.0-7.4) Lymphocytes # (Auto) 1.2 K/uL (1.3-3.6) Monocytes # (Auto) 1.3 K/uL (0.3-1.0) Eosinophils # (Auto) 0.3 K/uL (0.0-0.5) Basophils # (Auto) 0.1 K/uL (0.0-0.1) Nucleated RBC Absolute Count (auto) 0.00 K/uL Glomerular Filtration Rate Calc 52.7 Calcium Level 8.6 mg/dl (8.4-10.2) Total Bilirubin 0.5 mg/dl (0.2-1.3) Aspartate Amino Transf (AST/SGOT) 47 U/L (0-35) Alanine Aminotransferase (ALT/SGPT) 67 U/L (0-56) Alkaline Phosphatase 158 U/L (0-126) Troponin I 0.017 ng/ml B-Type Natriuretic Peptide 207 pg/ml (0-100) Total Protein 7.5 g/dl (6.3-8.2) Albumin 3.4 g/dl (3.5-5.0) ED Course/Re-evaluation ED Course ED clinical course medical decision-making 83-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 Patient was in her primary care placed on Imodium and Lomotil I which is currently taken patient's labs do show some mild prerenal azotemia this was treated with fluid resuscitation x-ray of the chest and abdomen showed no acute findings patient blood work is relatively unremarkable mildly low potassium at 3.0 this was replaced with by mouth patient had not taken her potassium as she is indicated this and was directed to. Patient is a chest pain cardiac markers and sent EKG all within normal limits patient diagnosed with dehydration and persistent diarrhea cultures have been sent previously and will follow-up with her primary care Decision to Disposition Date: Aug 14, 2018 Decision to Disposition Time: 17:46 Depart Departure Latest Vital Signs Vital Signs Date Time Temp Pulse Resp B/P (MAP) Pulse Ox O2 Delivery O2 Flow Rate FiO2 08/14/18 15:49 2.0 08/14/18 15:37 98.2 91 16 90 Room Air Impression: Primary Impression: Diarrhea Additional Impression: Dehydration Condition: Improved Disposition: HOME OR SELF-CARE Referrals: KASSY DORSEY MD (PCP) 5 Days Patient Instructions: Dehydration (DC) Problem Qualifiers TAWANA LOWE MD Aug 14, 2018 16:03
[2018-08-14 16:07] LABS: PLATELET COUNT, AUTOMATED 394 K/uL (150-450)
--- NOTE | 2018-08-14 16:24 | EKG ---
FACILITY: [facility] - [place] PATIENT NAME: BARB ARZOLA : [id number] MR: [id number] V: [id number] EXAM DATE: ORDERING PHYSICIAN: TAWANA LOWE TECHNOLOGIST: Test Reason : Blood Pressure : / mmHG Vent. Rate : 092 BPM Atrial Rate : 441 BPM P-R Int : 000 ms QRS Dur : 084 ms QT Int : 364 ms P-R-T Axes : 000 072 058 degrees QTc Int : 450 ms Atrial fibrillation with premature ventricular or aberrantly conducted complexes Abnormal ECG Confirmed by CHARO GONZALES ([id number]) on 08/14/2018 8:48:42 PM Referred By: Confirmed By:CHARO GONZALES
--- NOTE | 2018-08-14 16:45 | RADIOLOGY IMAGING REPORT ---
[facility] PATIENT NAME: Sandra Deal : 1935 MR: [id number] V: [id number] EXAM DATE: ORDERING PHYSICIAN: TAWANA LOWE TECHNOLOGIST: [place] [facility] [place] : 1935 Visit/Account:[id number] Date of Sevice: 08/14/2018 CHEST PA LAT HISTORY: Chest pain. COMPARISON: March 15, 2016. FINDINGS: Cardiomediastinal contours: The heart is markedly enlarged due to multichamber enlargement. This is a stable finding. Lungs and pleura: There is no finding of an infiltrate, lymphadenopathy or pleural effusion. There i s no congestive heart failure. Bones/soft tissues: There are no findings of a fracture. IMPRESSION: Cardiomegaly without congestive heart failure or infiltrate. Report Dictated By: David Crenshaw MD at 08/14/2018 4:37 PM Report E-Signed By: David Crenshaw MD at 08/14/2018 4:38 PM WSN:[id number]
[2018-08-14] MEDS ORDERED: POTASSIUM CHL 20 MEQ TABCR PO ONE (17:00)
--- NOTE | 2018-08-14 17:26 | RADIOLOGY IMAGING REPORT ---
FACILITY: [facility] [place] PATIENT NAME: Sandra Deal : 1935 MR: [id number] V: [id number] EXAM DATE: ORDERING PHYSICIAN: TAWANA LOWE TECHNOLOGIST: Location: [facility] Patient: Sandra Deal : 1935 Visit/Account:[id number] Date of Sevice: 08/14/2018 EXAMINATION: Abdominal radiograph single view HISTORY: Cardiac problems and incontinence. COMPARISON: CT of the abdomen and pelvis from 07/24/2018. FINDINGS: Two AP supine views of the abdomen are obtained. Lines/tubes: None. Bowel gas pattern: There is gas and a small stool content within the large bowel. No dilated loops of bowel are seen. Vascular calcifications are noted in the pelvis. Soft tissues: Negative. Bony structures: Mild left convex scoliotic curvature of the lumbar spine. Advanced multilevel disc degenerative changes in the lumbar spine. IMPRESSION: Normal bowel gas pattern. Report Dictated By: Yunior Whiting MD at 08/14/2018 5:17 PM Report E-Signed By: Yunior Whiting MD at 08/14/2018 5:20 PM WSN:[id number]
[2018-08-14 20:00] VITALS: BP 116/75
[2018-08-18] MEDS ORDERED: DIPH-1 PO (18:08)
== END 2018-08-14 20:54 | disposition home or self-care (01) ==
LOC: ER 15:37
DX: R19.7 Diarrhea, unspecified (principal); E86.0 Dehydration; I11.0 Hypertensive heart disease with heart failure; I50.9 Heart failure, unspecified; Z79.899 Other long term (current) drug therapy
CPT/HCPCS: 36415; 71046; 74018; 83880; 84484; 85025; 93005; 96360; 96361; 99284; J7030; 82040; 82247; 82310; 82374; 82435; 82565; 82947; 84075; 84132; 84155; 84295; 84450; 84460; 84520

== ENCOUNTER → 2018-08-14 | Outpatient (CLI) | payer MEDICARE ==
[~2018-08-14] MED LIST changes: +PANT20TA27 PO; +PSYL0.5241 PO
== END ==
LOC: AMB 15:15
PROVIDERS: ATTEND Nurse Practitioner
DX: R53.1 Weakness (principal); R19.7 Diarrhea, unspecified
CPT/HCPCS: A0425; A0427

== ENCOUNTER → 2018-08-14 | Outpatient (CLI) | payer MEDICARE, OTHER | LOC: AMB 20:41 | PROVIDERS: ATTEND Nurse Practitioner | DX: Z76.89 Persons encountering health services in other specified circumstances (principal) | CPT/HCPCS: A0425; A0428 ==

== ENCOUNTER 2018-08-26 15:05 | Inpatient (IN) | payer MEDICARE, OTHER ==
[~2018-08-26] VITALS: Ht 172.7 cm; Wt 97.1 kg
[~2018-08-26 15:05] MED LIST changes: -ACET-2146 PO; -BISM262T88 PO; -CALC1TAB32 PO; -CYAN100T26 PO; -Calcium Carbonate/Vitamin D3 PO; -FOLI-68 PO
[2018-08-26 16:08] VITALS: BP 111/55
[2018-08-26] MEDS ORDERED: INFLUENZA VIRUS VAC 0.5ML SYR IM ONLY ONE (16:10)
--- NOTE | 2018-08-26 16:23 | History & Physical ---
History of Present Illness Chief Complaint Diarrhea History of Present Illness This patient was directly admitted after visiting with her primary physician on a home visit. She has had diarrhea since April, and reports that it has been worsening since that time. She has been to the ER several times over the last few months, but her symptoms keep worsening. She is now at the point where she is having trouble transitioning to the commode. History Problems: (1) Subacute thyroiditis Onset Date: 11/16/2013 Status: Acute (2) Hypertension, benign Onset Date: 11/16/2013 Status: Acute (3) Peripheral edema Status: Acute (4) Seizure Home Meds Active Scripts Potassium Chloride (POTASSIUM CHLORIDE) 10 Meq Tablet.er, 3 TAB PO QDAY for 90 Days, #90 TAB Take along with furosemide Prov:KASSY DORSEY MD 08/25/18 Furosemide (FUROSEMIDE) 40 Mg Tablet, 1 TAB PO DAILY for 90 Days, #90 TAB 1 Refill Prov:KASSY DORSEY MD 08/25/18 Pantoprazole Sodium (PANTOPRAZOLE SODIUM) 20 Mg Tablet.dr, 1 TAB PO QDAY for 90 Days, #90 TAB Prov:KASSY DORSEY MD 08/19/18 Diphenoxylate Hcl/Atropine (LOMOTIL TABLET) 1 Each Tablet, 1-2 TAB PO QID PRN for DIARRHEA for 30 Days, #240 TAB Prov:KASSY DORSEY MD 08/18/18 Apixaban (ELIQUIS) 5 Mg Tablet, 1 TAB PO BID for 90 Days, #180 TAB 4 Refills Prov:KASSY DORSEY MD 07/13/18 Phenytoin Sodium Extended (DILANTIN) 100 Mg Capsule, 2 CAP PO QDAY for 90 Days, #180 CAPSULE 1 Refill Prov:KASSY DORSEY MD 07/09/18 Amiloride/Hctz (AMILORIDE HCL-HCTZ 5-50 MG TAB) 1 Each Tab, 0.5 TAB PO QDAY for 90 Days, #90 TAB 4 Refills Prov:KASSY DORSEY MD 07/07/18 Diclofenac Sodium 1% Gel (VOLTAREN 1% GEL) 100 Gm Gel..gram., 2 GM TOP QID for knee osteoarthritis for 30 Days, #1 TUBE 4 Refills Prov:KASSY DORSEY MD 07/07/18 Levothyroxine Sodium (LEVOTHYROXINE SODIUM) 175 Mcg Tablet, 175 MCG PO QDAY for 90 Days, #90 TAB 4 Refills Prov:KASSY DORSEY MD 03/04/18 Reported Medications [Canna XL Top 50mg] No Conflict Check, 1 TATE TOP PRN 04/10/17 [Canna XL-Hemp 5mg] No Conflict Check, 1-2 CAP PO DAILY 04/10/17 Loperamide Hcl (LOPERAMIDE) 2 Mg Tablet, 1-2 TAB PO DIRECTED 2 tabs after loose stool, 1 tab after each subsequent loose stool(not to exceed 8 tabs daily) 04/10/17 Acetaminophen (TYLENOL EXTRA STRENGTH) 500 Mg Tablet, 2 TAB PO BID, TAB 04/10/17 Discontinued Reported Medications Multivitamin (DAILY VALUE) 1 Each Tablet, 1 EACH PO QDAY 02/22/15 Lactobacillus Combination No.4 (PROBIOTIC) 1 Each Capsule, 1 TABCHEW PO BID, CAPSULE 04/10/17 Glucosa Kamara 2KCL/Chondroitin Kamara (GLUCOSAMINE CHONDROITIN CAPLET) 1 Each Tablet, 1 TAB PO DAILY 04/10/17 [place]-3 Fatty Acids/Fish Oil (FISH OIL 1,000 MG CAPSULE) 1 Each Capsule, 1 EACH PO DAILY 10/13/16 Discontinued Scripts Psyllium Husk (METAMUCIL) 0.52 Gm Capsule, 2-4 CAP PO BID PRN for BID for 30 Days, CAPSULE 2 CAP BID FOR ONE WEEK THAN 4 CAP BID Prov:KASSY DORSEY MD 08/04/18 Potassium Chloride (POTASSIUM CHLORIDE) 10 Meq Tablet.er, 3 TAB PO QDAY PRN for edema for 90 Days, #180 TAB Take along with furosemide Prov:KASSY DORSEY MD 07/07/18 Omeprazole (OMEPRAZOLE) 20 Mg Capsule.dr, 1 CAP PO DAILY for 90 Days, #90 CAP Prov:KASSY DORSEY MD 07/07/18 Duloxetine Hcl (CYMBALTA) 20 Mg Capcr, 1 CAP PO QDAY for 90 Days, #90 CAP 4 Refills Prov:KASSY DORSEY MD 09/22/17 Allergies: Coded Allergies: No Known Drug Allergies (Unverified , 10/13/16) Patient History: FH: SD (myocardial infarction) FH: kidney failure FATHER, , Age:67 Hx Smoking: No Smoking Status: Never Smoker Hx Alcohol Use: No Review of Systems All Systems Reviewed/Normal: Yes, Except as Noted Gastrointestinal: Diarrhea Exam Vital Signs Vital Signs Date Time Temp Pulse Resp B/P (MAP) Pulse Ox O2 Delivery O2 Flow Rate FiO2 08/26/18 16:08 93 12 111/55 (73) 90 Room Air Neuro: No Gross deficits Eyes: PERRLA Cardiovascular: Regular Rate and Rhythm Respiratory: Clear to Auscultation GI: Abd Soft and Non-Tender Extremities: No Edema Integumentary: No Cyanosis Assessment and Plan Problems: (1) Diarrhea Assessment & Plan: She has had diarrhea for the last 4 months. She had a CT of the abdomen on a previous visit. Stool studies were also performed and negative. Lab studies are pending (2) Subacute thyroiditis Onset Date: 11/16/2013 Status: Acute Assessment & Plan: She is on chronic treatment with Synthroid. A TSH is pending. (3) Seizure Assessment & Plan: She is on chronic treatment with Dilantin. (4) Peripheral edema Status: Acute Assessment & Plan: She is on chronic treatment with diuretics, which have been placed on hold. (5) Afib Assessment & Plan: She is on chronic treatment with Eliquis. Copies to: KASSY DORSEY MD ; Venous Thromboembolism Antithrombotics Is Pt On Any Antithrombotics?: Yes PATRIA LUGO DO Aug 26, 2018 16:23
[2018-08-26 16:51] LABS: PLATELET COUNT, AUTOMATED 427 K/uL (150-450)
[2018-08-26] MEDS: NS(*) 0.9% 1000 ML BAG 1,000 ML IV PRN (18:23)
[2018-08-26 19:54] VITALS: BP 117/66
[2018-08-26] MEDS: APIXABAN 2.5 MG TABLET PO SCH (21:25)
[2018-08-27] MEDS: NS(*) 0.9% 1000 ML BAG 1,000 ML IV PRN (05:08)
[2018-08-27] MEDS: LEVOTHYROXINE SOD 0.175 MG TAB PO SCH (05:08)
[2018-08-27 07:17] VITALS: BP 125/67
[2018-08-27 08:37] LABS: PLATELET COUNT, AUTOMATED 419 K/uL (150-450)
[2018-08-27] MEDS: POTASSIUM CHL 10 MEQ TABCR PO SCH (09:08)
[2018-08-27] MEDS: PANTOPRAZOLE SOD 20 MG TABEC PO SCH (09:09)
[2018-08-27] MEDS: PHENYTOIN ER 100 MG CAPER PO SCH (09:09)
[2018-08-27] MEDS: APIXABAN 2.5 MG TABLET PO SCH ×2 (09:09→20:38)
--- NOTE | 2018-08-27 09:39 | Hospitalist Progress Note ---
Subjective Progress Notes Subjective She has complaints of low back pain this morning. She has had four episodes of diarrhea overnight. Patient Complains of: Cardiovascular: No: Chest Pain Respiratory: No: Shortness of Breath Physical Exam Vital Signs Date Time Temp Pulse Resp B/P (MAP) Pulse Ox O2 Delivery O2 Flow Rate FiO2 08/27/18 07:17 98.5 80 14 125/67 (86) 92 Room Air Intake and Output 08/27/18 01:03 # Voids 3 # Bowel Movements 1 General Appearance: Alert, Awake, No Acute Distress, Afebrile Neuro: Other (weakness noted to bilateral lower extremities) Cardiovascular: Regular Rate and Rhythm Respiratory: No Respiratory Distress, Clear to Auscultation GI: Soft and Non-Tender Extremities: Warm, Perfused, Edema (3+pitting edema) Psych: Appropriate Mood & Affect Result Diagram: 08/27/1880608/27/18806 Assessment and Plan Problems: (1) Diarrhea Assessment & Plan: She has had diarrhea for the last 4 months. She had a CT of the abdomen on a previous visit. Stool studies were also performed and negative. (2) Acute renal failure Status: Acute Assessment & Plan: She was admitted with creatinine of 1.1. She was given gentle IV fluids overnight. This morning her creatinine has improved at 0.8. (3) Weakness Assessment & Plan: She has difficulty with ambulation, secondary to weakness. She will get PT/OT evaluation. She has been unable to ambulate at home. Consult to [facility] for possible placement. (4) Subacute thyroiditis Onset Date: 11/16/2013 Status: Acute Assessment & Plan: She is on chronic treatment with Synthroid. A TSH is pending. (5) Seizure Assessment & Plan: She is on chronic treatment with Dilantin. (6) Peripheral edema Status: Acute Assessment & Plan: She is on chronic treatment with diuretics, which have been placed on hold. (7) Afib Assessment & Plan: She is on chronic treatment with Eliquis. Exam Sepsis Risk: No Definite Risk ABBI ESQUIVEL LEAD DRIVER Aug 27, 2018 09:39
[2018-08-27] MEDS ORDERED: CYANOCOBALAMIN 1000 MCG TAB PO ONE (10:30)
[2018-08-27] MEDS ORDERED: CYANOCOBALAMIN 100 MCG TAB PO SCH (10:30)
[2018-08-27] MEDS: FOLIC ACID 1 MG TAB PO SCH (10:46)
[2018-08-27] MEDS: CALCIUM CARBONATE/VITAMIN D3 PO SCH (10:46)
[2018-08-27] MEDS: LIDOCAINE 5% PATCH TP SCH (10:46)
--- NOTE | 2018-08-27 12:42 | NUR ---
Physical Therapy Impression PT eval complete. Pt able to stand from commode with Mod A x2. Pt not safe to live alone at this time. Recommend short-term subacute rehab. Physical Therapy Goals 1. Mod I bed mobility. 2. Mod I transfers. Patient's Goals Addendum: 08/27/18 at 1243 by JACINTA VALDES PT The recommendation is actually long-term rehab.
--- NOTE | 2018-08-27 12:46 | Medical Nutrition Therapy ---
Nutrition Anthropometrics Height (Inches): 68.00 Height (Calculated Centimeters: 172.677399 Weight (Pounds): 214 Weight (Calculated Kilograms): 97.069 BMI: 32.5 Beni Nutrition Score: Probably Inadequate Beni Nutrition Risk Score: 12 Dietary Referral Nutrition Risk Factors: Unplanned Loss >10lbs Nutrition Risk Comment: Physical Findings Physical Appearance: Obese BMI 30-39 Skin Appearance Skin Appearance: Edema Edema Location Modifier: Both Edema Location: Lower Extremity Type of Edema: Degree of Edema: 3+ Gastrointestinal Symptoms GI Symtoms: Diarrhea Tube Present: Bowel Sounds: Recent Bowel Pattern: Diarrhea, Incontinent Stool Characteristics: Loose Nutritional Diagnosis Nutritional Risk Acuity 2: GI Malabsorption Nutritional Acuity: 2-Moderate Nutrition Diagnosis: Altered GI Function Nutrition Etiology: Physiological Causes Nutrition Problem/Etiology/Sym: Chronic Diarrhea x 4 months, reported 10 lb wt loss Energy Requirement: 1907 (MSJ) Protein Requirement: 97 (1g/kg) Fluid Requirement: 1907 (1mL/kcal) Diet Type: Diet as Tolerated KEITH/REG Nutrition Intervention: Between meal supplement Nutrition Monitoring & Eval Nutrition Goals: Eat 75-100% Meal Nutrition Monitoring: Monitor intake, weight, diarrhea RD Patient Assessment Time: [address] Assessment Type: RD Assessment Patient Nutrition Acuity: 2-Moderate Follow Up Date: Aug 31, 2018 Nutritional Comment: 08/27/18: Pt admit for chronic diarrhea x 4 months. Other dx includes HTN, arthritis, thyroiditis, peripheral edema. Pt was sleeping soundly when attempted visit. Could not find any weight history in the EMR. Reported 10 lb weight loss. Labs significant for elevated AST and ALT, and K+ at low end of normal range. Past clinic visit noted possible IBS-D, and they had been working on adding fiber to diet. Recommend adding probiotic for diarrhea and increasing sources of soluble fiber to slow GI transit. Will continue to monitor intake, tolerance to diet, and diarrhea.BUSHRA MALAGON Aug 27, 2018 12:29
[2018-08-27 14:53] VITALS: BP 118/71
[2018-08-27 20:08] VITALS: BP 116/58
[2018-08-27] MEDS: PATCH REMOVAL 1 EA TP SCH (20:39)
[2018-08-28] MEDS: LEVOTHYROXINE SOD 0.175 MG TAB PO SCH (05:50)
[2018-08-28 05:57] LABS: PLATELET COUNT, AUTOMATED 379 K/uL (150-450)
[2018-08-28] MEDS: PHENYTOIN ER 100 MG CAPER PO SCH (08:57)
[2018-08-28] MEDS: LOPERAMIDE HCL 2 MG CAP PO PRN (08:57)
[2018-08-28] MEDS: PANTOPRAZOLE SOD 20 MG TABEC PO SCH (08:57)
[2018-08-28] MEDS: FOLIC ACID 1 MG TAB PO SCH (08:57)
[2018-08-28] MEDS: CALCIUM CARBONATE/VITAMIN D3 PO SCH (08:57)
[2018-08-28] MEDS: POTASSIUM CHL 10 MEQ TABCR PO SCH (08:59)
[2018-08-28] MEDS: APIXABAN 2.5 MG TABLET PO SCH ×2 (08:59→20:57)
[2018-08-28] MEDS: LIDOCAINE 5% PATCH TP SCH (09:00)
[2018-08-28] MEDS ORDERED: CYANOCOBALAMIN 100 MCG TAB PO SCH (09:00)
--- NOTE | 2018-08-28 10:09 | Hospitalist Progress Note ---
Subjective Progress Notes Subjective She was admitted with diarrhea. She reports her bowel movements increased overnight. She is very uncomfortable. She reports she has been sitting on the commode for hours. Patient Complains of: Cardiovascular: No: Chest Pain Respiratory: No: Shortness of Breath Physical Exam Vital Signs Date Time Temp Pulse Resp B/P (MAP) Pulse Ox O2 Delivery O2 Flow Rate FiO2 08/27/18 20:20 94 Room Air 08/27/18 20:08 98.3 90 16 116/58 (77) Intake and Output 08/28/18 07:03 Intake Total 1288 ml Balance 1288 ml Intake Oral 700 ml IV Total 588 ml # Voids 8 # Bowel Movements 10 General Appearance: Alert, Awake, No Acute Distress, Afebrile Neuro: No Gross deficits Cardiovascular: Regular Rate and Rhythm Respiratory: No Respiratory Distress, Clear to Auscultation GI: Soft and Non-Tender Extremities: Warm, Perfused; No Edema Psych: Appropriate Mood & Affect Result Diagram: 08/28/18 0532 08/28/18 0532 Assessment and Plan Problems: (1) Diarrhea Assessment & Plan: She has had diarrhea for the last 4 months. She had a CT of the abdomen on a previous visit. Stool studies were also performed and negative. (2) Acute renal failure Status: Acute Assessment & Plan: She was admitted with creatinine of 1.1, which decreased to 0.8 with IV hydration. (3) Weakness Assessment & Plan: She has difficulty with ambulation, secondary to weakness. She will get PT/OT evaluation. She has been unable to ambulate at home. Consult to [facility] for placement. (4) Subacute thyroiditis Onset Date: 11/16/2013 Status: Acute Assessment & Plan: She is on chronic treatment with Synthroid. A TSH WNL. (5) Seizure Assessment & Plan: She is on chronic treatment with Dilantin. (6) Peripheral edema Status: Acute Assessment & Plan: She is on chronic treatment with diuretics, which have been placed on hold. (7) Afib Assessment & Plan: She is on chronic treatment with Eliquis. Exam Sepsis Risk: No Definite Risk ABBI ESQUIVEL CLINICAL LABORATORY AIDE Aug 28, 2018 10:09
--- NOTE | 2018-08-28 10:30 | NUR ---
Physical Therapy Impression Patient presents in bed and is agreeable to therapy. Patient was a co treatment with OT for safety and technique of transfers due to weakness in right LE and nerve damage on right side. Patient was min A for bed mobility for B LE's. Patient performed 5 sit to stand transfers from edge of bed with min A and max verbal cues for proper positioning of feet and hands and forward weight shift and proper positioning of hands with standing and to correct FTL with standing. Patient would plop when going from stand to sit even with cuing on 3rd and 4th rep we did raise the bed and patient had slightly more control with sitting but on 5th rep was fatigued as she was unable to stand all the way and plopped back down. Patient was left in bed with all needs met, rails up and call light. Physical Therapy Goals 1. Mod I bed mobility. 2. Mod I transfers. Patient's Goals
[2018-08-28 10:40] VITALS: BP 123/57
--- NOTE | 2018-08-28 12:00 | NUR ---
Occupational Therapy Impression SBA supine to sit with HOB raised. Min Ax2 sit<>stands x5 with RW. V/c's for safe sequencing. Pt fatigued at end of tx session, unable to complete to full stand upon final sit<>stand. Min A supine to sit. Pt declined toileting or further needs at this time. Recommend long-term rehab. Occupational Therapy Goals 1) Pt will be CGA toilet task. 2) Pt will be CGA grooming hygiene. Patient's Goal
[2018-08-28] MEDS: CYANOCOBALAMIN 100 MCG TAB PO SCH (12:13)
[2018-08-28 19:42] VITALS: BP 124/53
[2018-08-28] MEDS: PATCH REMOVAL 1 EA TP SCH (20:57)
[2018-08-29] MEDS: PATCH REMOVAL 1 EA TP SCH (00:48)
[2018-08-29 01:59] VITALS: BP 116/65
[2018-08-29] MEDS: LEVOTHYROXINE SOD 0.175 MG TAB PO SCH (05:36)
[2018-08-29] MEDS: PANTOPRAZOLE SOD 20 MG TABEC PO SCH (09:59)
[2018-08-29] MEDS: CYANOCOBALAMIN 100 MCG TAB PO SCH (09:59)
[2018-08-29] MEDS: PHENYTOIN ER 100 MG CAPER PO SCH (09:59)
[2018-08-29] MEDS: APIXABAN 2.5 MG TABLET PO SCH ×2 (09:59→20:24)
[2018-08-29] MEDS: CALCIUM CARBONATE/VITAMIN D3 PO SCH (09:59)
[2018-08-29] MEDS: LOPERAMIDE HCL 2 MG CAP PO PRN ×2 (09:59→18:10)
[2018-08-29] MEDS: POTASSIUM CHL 10 MEQ TABCR PO SCH (10:00)
[2018-08-29] MEDS: FOLIC ACID 1 MG TAB PO SCH (10:00)
[2018-08-29] MEDS: LIDOCAINE 5% PATCH TP SCH (10:00)
[2018-08-29 10:03] VITALS: BP 120/74
--- NOTE | 2018-08-29 10:28 | Hospitalist Progress Note ---
Subjective Progress Notes Subjective She was admitted with diarrhea. She reports some improvement yesterday in symptoms. She had no acute events overnight. Patient Complains of: Cardiovascular: No: Chest Pain Respiratory: No: Shortness of Breath Physical Exam Vital Signs Date Time Temp Pulse Resp B/P (MAP) Pulse Ox O2 Delivery O2 Flow Rate FiO2 08/29/18 10:06 92 Room Air 08/29/18 10:03 98.5 81 16 120/74 (89) Intake and Output 08/29/18 01:03 Intake Total 1020 ml Balance 1020 ml Intake Oral 1020 ml # Voids 5 # Bowel Movements 7 General Appearance: Alert, Awake, No Acute Distress, Afebrile Neuro: No Gross deficits Cardiovascular: Regular Rate and Rhythm Respiratory: No Respiratory Distress, Clear to Auscultation Extremities: Warm, Perfused, Edema (4+ pitting edema) Psych: Alert & Oriented X3, Appropriate Mood & Affect Result Diagram: 08/28/18 0532 08/28/18 0532 Assessment and Plan Problems: (1) Diarrhea Assessment & Plan: She has had diarrhea for the last 4 months. She had a CT of the abdomen on a previous visit. Stool studies were also performed and negative. (2) Acute renal failure Status: Acute Assessment & Plan: She was admitted with creatinine of 1.1, which decreased to 0.8 with IV hydration. (3) Weakness Assessment & Plan: She has difficulty with ambulation, secondary to weakness. She has been working with PT/OT. She has been unable to ambulate at home. She has been accepted to [facility] Friday. (4) Subacute thyroiditis Onset Date: 11/16/2013 Status: Acute Assessment & Plan: She is on chronic treatment with Synthroid. A TSH WNL. (5) Seizure Assessment & Plan: She is on chronic treatment with Dilantin. (6) Peripheral edema Status: Acute Assessment & Plan: She is on chronic treatment with diuretics, which have been placed on hold. (7) Afib Assessment & Plan: She is on chronic treatment with Eliquis. Exam Sepsis Risk: No Definite Risk ABBI ESQUIVEL JOB HAND Aug 29, 2018 10:28
--- NOTE | 2018-08-29 10:53 | NUR ---
Physical Therapy Impression Patient presents in bed and is agreeable to therapy. Patient performed bed mobility with min A. Patient instructed in transfer training from EOB to standing with FWW and min A x 2. Patient performed 4 reps with cuing for proper positioning and technique. Patient needed min A to place feet back and to brace her feet so they do not slide. Patient needed max tactile and verbal cuing for technique and posture with transfers. On second rep patient stood for over one minute. Patient was able to slowly lower herself down with the bed raised slightly. Patient then performed transfer with STS lift and needed cuing on hand placement. Nurse reported that she does not do this well for her when she transfers. Patient left on toilet with STS lift in front of her with call light and nursing was present. Physical Therapy Goals 1. Mod I bed mobility. 2. Mod I transfers. Patient's Goals
[2018-08-29 14:31] VITALS: BP 120/70
[2018-08-29] MEDS: ACETAMINOPHEN 325 MG TAB PO PRN (14:34)
[2018-08-29 19:40] VITALS: BP 118/57
[2018-08-30] MEDS: LOPERAMIDE HCL 2 MG CAP PO PRN ×3 (00:50→23:46)
[2018-08-30 03:53] VITALS: BP 127/65
[2018-08-30 05:36] LABS: PLATELET COUNT, AUTOMATED 379 K/uL (150-450)
[2018-08-30] MEDS: LEVOTHYROXINE SOD 0.175 MG TAB PO SCH (05:59)
[2018-08-30] MEDS: LIDOCAINE 5% PATCH TP SCH (09:53)
[2018-08-30] MEDS: ACETAMINOPHEN 325 MG TAB PO PRN (09:54)
[2018-08-30] MEDS: POTASSIUM CHL 10 MEQ TABCR PO SCH (09:54)
[2018-08-30] MEDS: PANTOPRAZOLE SOD 20 MG TABEC PO SCH (09:54)
[2018-08-30] MEDS: CALCIUM CARBONATE/VITAMIN D3 PO SCH (09:54)
[2018-08-30] MEDS: PHENYTOIN ER 100 MG CAPER PO SCH (09:55)
[2018-08-30] MEDS: APIXABAN 2.5 MG TABLET PO SCH ×2 (09:55→20:46)
[2018-08-30] MEDS: CYANOCOBALAMIN 100 MCG TAB PO SCH (09:55)
[2018-08-30] MEDS: FOLIC ACID 1 MG TAB PO SCH (09:55)
[2018-08-30 09:59] VITALS: BP 117/76
--- NOTE | 2018-08-30 10:03 | Hospitalist Progress Note ---
Subjective Progress Notes Subjective She has no complaints this morning. She feels her diarrhea is somewhat improved. She plans to discharge to [facility] tomorrow. Patient Complains of: Cardiovascular: No: Chest Pain Respiratory: No: Shortness of Breath Physical Exam Vital Signs Date Time Temp Pulse Resp B/P (MAP) Pulse Ox O2 Delivery O2 Flow Rate FiO2 08/30/18 03:53 98.5 82 16 127/65 (85) 91 Room Air Intake and Output 08/30/18 01:03 Intake Total 1240 ml Balance 1240 ml Intake Oral 1240 ml # Voids 4 # Bowel Movements 3 General Appearance: Alert, Awake, No Acute Distress, Afebrile Neuro: No Gross deficits Cardiovascular: Regular Rate and Rhythm Respiratory: No Respiratory Distress, Clear to Auscultation GI: Soft and Non-Tender Psych: Alert & Oriented X3, Appropriate Mood & Affect Result Diagram: 08/30/1851408/30/18514 Assessment and Plan Problems: (1) Diarrhea Assessment & Plan: She has had diarrhea for the last 4 months. She had a CT of the abdomen on a previous visit. Stool studies were also performed and negative. She does have appointment with gastroenterology . (2) Acute renal failure Status: Acute Assessment & Plan: She was admitted with creatinine of 1.1, which decreased to 0.8 with IV hydration. (3) Weakness Assessment & Plan: She has difficulty with ambulation, secondary to weakness. She has been working with PT/OT. She has been unable to ambulate at home. She has been accepted to [facility] Friday. (4) Subacute thyroiditis Onset Date: 11/16/2013 Status: Acute Assessment & Plan: She is on chronic treatment with Synthroid. A TSH WNL. (5) Seizure Assessment & Plan: She is on chronic treatment with Dilantin. Stable on seizures. She was started on Vitamin D, Calcium, Vitamin B12 and folate, which could be decreased with the use of Dilantin. (6) Peripheral edema Status: Acute Assessment & Plan: She is on chronic treatment with diuretics, which have been placed on hold. (7) Afib Assessment & Plan: She is on chronic treatment with Eliquis. Exam Sepsis Risk: No Definite Risk ABBI ESQUIVEL NARCOTICS DETECTIVE Aug 30, 2018 10:03
[2018-08-30 15:49] VITALS: BP 120/65
[2018-08-30] MEDS: PATCH REMOVAL 1 EA TP SCH (20:46)
[2018-08-30 23:41] VITALS: BP 132/58
[2018-08-31] MEDS: LEVOTHYROXINE SOD 0.175 MG TAB PO SCH (05:45)
[2018-08-31 06:53] VITALS: BP 120/58
--- NOTE | 2018-08-31 08:02 | NUR ---
Called [facility] to verify transfer time for Christina Tsai NP; Fiona at [facility] states they will call us back when admissions staff arrives
[2018-08-31 08:35] LABS: PLATELET COUNT, AUTOMATED 399 K/uL (150-450)
[2018-08-31] MEDS ORDERED: Calcium Carbonate/Vitamin D3 PO (09:30)
[2018-08-31] MEDS ORDERED: FOLI-68 PO (09:30)
[2018-08-31] MEDS ORDERED: CYAN100T26 PO (09:30)
--- NOTE | 2018-08-31 09:39 | Hospitalist Depart ---
Discharge Summary Reason for Hosp/Final Diag: (1) Diarrhea Hospital Course & Plan: She has had diarrhea for the last 4 months. She had a CT of the abdomen on a previous visit. Stool studies were also performed and negative. She does have appointment with gastroenterology . Will continue Loperamide in the interim for diarrhea control. (2) Acute renal failure Status: Acute Hospital Course & Plan: She was admitted with creatinine of 1.1, which decreased to 0.8 with IV hydration. (3) Weakness Hospital Course & Plan: She has difficulty with ambulation, secondary to weakness. She has been working with PT/OT. She has been unable to ambulate at home. She has been accepted to [facility]. (4) Subacute thyroiditis Onset Date: 11/16/2013 Status: Acute Hospital Course & Plan: She is on chronic treatment with Synthroid. A TSH WNL. (5) Seizure Hospital Course & Plan: She is on chronic treatment with Dilantin. Stable on seizures. She was started on Vitamin D, Calcium, Vitamin B12 and folate, which could be decreased with the use of Dilantin. (6) Hypertension Status: Chronic Hospital Course & Plan: She is on chronic treatment with Amiloride/ HCTZ and furosemide. This has been stopped secondary to decreased blood pressures and risk for dehydration with diarrhea. (7) Peripheral edema Status: Acute Hospital Course & Plan: She is on chronic treatment with diuretics, which have been placed on hold. See above. Would recommend wraps for patients edema. (8) Afib Hospital Course & Plan: She is on chronic treatment with Eliquis. Departure Latest Vital Signs Vital Signs 08/31/18 08/31/18 06:53 07:10 Temp 99.2 Pulse 77 Resp 16 B/P (MAP) 120/58 (78) Pulse Ox 90 O2 Delivery Room Air Weight (Pounds): 214 Result Diagram: 08/31/18 0825 08/30/18 0515 Condition: Improved Discharge: Assisted PT/OT Follow Up For: PT For Strengthening, OT For ADL's, PT Evaluation and Treat, OT Evaluation and Treat Discharge Instructions Home Meds Active Scripts Folic Acid (FOLIC ACID) 1 Mg Tablet, 1 MG PO QDAY, #30 TAB Prov:ABBI ESQUIVEL COLLECTION ADMINISTRATOR 08/31/18 Cyanocobalamin (Vitamin B-12) (VITAMIN B-12) 100 Mcg Tablet, 100 MCG PO QDAY, #30 TAB Prov:ABBI ESQUIVEL [facility] 08/31/18 [Calcium Carbonate/Vitamin D3] 1 EA TAB No Conflict Check, 1 EACH PO QDAY, #30 TAB Prov:ABBI ESQUIVEL COLLECTION ADMINISTRATOR 08/31/18 Pantoprazole Sodium (PANTOPRAZOLE SODIUM) 20 Mg Tablet.dr, 1 TAB PO QDAY for 90 Days, #90 TAB Prov:KASSY DORSEY MD 08/19/18 Apixaban (ELIQUIS) 5 Mg Tablet, 1 TAB PO BID for 90 Days, #180 TAB 4 Refills Prov:KASSY DORSEY MD 07/13/18 Phenytoin Sodium Extended (DILANTIN) 100 Mg Capsule, 2 CAP PO QDAY for 90 Days, #180 CAPSULE 1 Refill Prov:KASSY DORSEY MD 07/09/18 Diclofenac Sodium 1% Gel (VOLTAREN 1% GEL) 100 Gm Gel..gram., 2 GM TOP QID for knee osteoarthritis for 30 Days, #1 TUBE 4 Refills Prov:KASSY DORSEY MD 07/07/18 Levothyroxine Sodium (LEVOTHYROXINE SODIUM) 175 Mcg Tablet, 175 MCG PO QDAY for 90 Days, #90 TAB 4 Refills Prov:KASSY DORSEY MD 03/04/18 Reported Medications Loperamide Hcl (LOPERAMIDE) 2 Mg Tablet, 1-2 TAB PO DIRECTED 2 tabs after loose stool, 1 tab after each subsequent loose stool(not to exceed 8 tabs daily) 04/10/17 Discontinued Reported Medications [Canna XL Top 50mg] No Conflict Check, 1 TATE TOP PRN 04/10/17 [Canna XL-Hemp 5mg] No Conflict Check, 1-2 CAP PO DAILY 04/10/17 Acetaminophen (TYLENOL EXTRA STRENGTH) 500 Mg Tablet, 2 TAB PO BID, TAB 04/10/17 Multivitamin (DAILY VALUE) 1 Each Tablet, 1 EACH PO QDAY 02/22/15 Discontinued Scripts Potassium Chloride (POTASSIUM CHLORIDE) 10 Meq Tablet.er, 3 TAB PO QDAY for 90 Days, #90 TAB Take along with furosemide Prov:KASSY DORSEY MD 08/25/18 Furosemide (FUROSEMIDE) 40 Mg Tablet, 1 TAB PO DAILY for 90 Days, #90 TAB 1 Refill Prov:KASSY DORSEY MD 08/25/18 Amiloride/Hctz (AMILORIDE HCL-HCTZ 5-50 MG TAB) 1 Each Tab, 0.5 TAB PO QDAY for 90 Days, #90 TAB 4 Refills Prov:KASSY DORSEY MD 07/07/18 Diphenoxylate Hcl/Atropine (LOMOTIL TABLET) 1 Each Tablet, 1-2 TAB PO QID PRN for DIARRHEA for 30 Days, #240 TAB Prov:KASSY DORSEY MD 08/18/18 Diet: Regular Activity: As Tolerated Special Instructions: Follow up with gastroenterology as scheduled this week. Continue wraps for lower extremity edema. Follow up with Dr. Dorsey in one week. Copies to: KASSY DORSEY MD ; Venous Thromboembolism Antithrombotics Is Pt On Any Antithrombotics?: Yes Problem Qualifiers (1) Hypertension: Hypertension type: essential hypertension Qualified Codes: I10 - Essential (primary) hypertension ABBI ESQUIVEL COLLECTION ADMINISTRATOR Aug 31, 2018 09:39
[2018-08-31] MEDS: CYANOCOBALAMIN 100 MCG TAB PO SCH (10:35)
[2018-08-31] MEDS: POTASSIUM CHL 10 MEQ TABCR PO SCH (10:36)
[2018-08-31] MEDS: PHENYTOIN ER 100 MG CAPER PO SCH (10:36)
[2018-08-31] MEDS: CALCIUM CARBONATE/VITAMIN D3 PO SCH (10:36)
[2018-08-31] MEDS: LOPERAMIDE HCL 2 MG CAP PO PRN (10:36)
[2018-08-31] MEDS: APIXABAN 2.5 MG TABLET PO SCH (10:36)
[2018-08-31] MEDS: PANTOPRAZOLE SOD 20 MG TABEC PO SCH (10:36)
[2018-08-31] MEDS: FOLIC ACID 1 MG TAB PO SCH (10:37)
[2018-08-31] MEDS: LIDOCAINE 5% PATCH TP SCH (10:39)
--- NOTE | 2018-08-31 10:47 | NUR ---
OCCUPATIONAL THERAPY Dressing Assistance: Chan Lechuga Dressing Aid Required: May benefit from [facility] AE education Home Assessment: Not Completed Feeding Assistance: Set-up Feeding Specialized Equipment: None Toilet Use: Max A Verbalizes Needs: Yes Understands Precautions: Yes Cooperative: Yes Family Teaching: No Occupational Therapy Comment:
--- NOTE | 2018-08-31 13:20 | NUR ---
PHYSICAL THERAPY INFORMATION TRANSFER SHEET BED MOBILITY: Minimum Assistance TRANSFERS: Minimum Assistance 2 person assist GAIT: ' with and Weightbearing Status: STAIRS: with . EXERCISES: Verbalizes Needs: Yes Understands Directions Yes Cooperative: Yes Family Teaching: No Physical Therapy Comment:
== END 2018-08-31 14:20 | disposition home or self-care (01) | DRG 684 ==
LOC: MED 15:05 → INTOOBSV 15:05 → OBSVTOIN 08-27
PROVIDERS: ADMIT Family Medicine; ATTEND Family Medicine
DX: N17.9 Acute kidney failure, unspecified (principal); E06.1 Subacute thyroiditis; I10 Essential (primary) hypertension; Z66 Do not resuscitate; I48.2 Chronic atrial fibrillation; R53.1 Weakness; G40.909 Epilepsy, unspecified, not intractable, without status epilepticus; R60.9 Edema, unspecified; Z79.01 Long term (current) use of anticoagulants; Z90.49 Acquired absence of other specified parts of digestive tract
CPT/HCPCS: 36415; 80185; 81001; 82040; 82247; 82310; 82374; 82435; 82565; 82947; 84075; 84132; 84155; 84295; 84443; 84450; 84460; 84520; 85025; 97162; 97166; G0378; G0379; J7030

== ENCOUNTER → 2018-08-26 | Outpatient (CLI) | payer OTHER ==
[~2018-08-26] MED LIST changes: +ACET-2146 PO; +BISM262T88 PO; +CALC1TAB32 PO; +CYAN100T26 PO; +Calcium Carbonate/Vitamin D3 PO; +FOLI-68 PO; +PANT20TA27 PO
== END ==
LOC: AMB 15:18
PROVIDERS: ATTEND Nurse Practitioner
DX: R19.7 Diarrhea, unspecified (principal)
CPT/HCPCS: A0425; A0433

== ENCOUNTER 2018-09-17 01:25 | Day surgery (SDC) | payer MEDICARE, OTHER ==
--- NOTE | 2018-09-15 10:31 | NUR ---
PAT INTERVIEW COMPLETED WITH PT, INSTRUCTIONS AND ARRIVAL TIME DISCUSSED WITH PT. PT IS A RESIDENT OF THE [facility]. [facility] CALLED, HAS DR JAMES BOWEL PREP INSTRUCTIONS, AND HAS STOPPED ELIQUIS ORDERED FOR PROCEDURE. [facility] INFORMED OF ARRIVAL TIME.
[~2018-09-17] VITALS: Ht 180.3 cm; Wt 104.3 kg
[~2018-09-17 01:25] MED LIST changes: +ACET-2146 PO; +BISM262T88 PO; +CALC1TAB32 PO; +CYAN100T26 PO; +Calcium Carbonate/Vitamin D3 PO; +FOLI-68 PO
[2018-09-17] MEDS ORDERED: PROPOFOL EMUL(*) 10MG/ML 20 ML 20 ML ONE ×2 (08:51→11:56)
[2018-09-17] MEDS ORDERED: LIDOCAINE/SOD BICARB 8.4% SYR ID ONE (10:20)
[2018-09-17] MEDS ORDERED: NORMOSOL R SOLN(*) 1000 ML BAG 1,000 ML IV PRN (10:20)
[2018-09-17 10:52] VITALS: BP 141/70
[2018-09-17 12:26] VITALS: BP 94/55
[2018-09-17 12:45] VITALS: BP 121/66
[2018-09-17 13:15] VITALS: BP 140/78
[2018-09-17 14:01] VITALS: BP 156/86
== END 2018-09-17 14:20 | disposition home or self-care (01) ==
LOC: OR 01:25
PROVIDERS: ATTEND Internal Medicine Gastroenterology
DX: K64.9 Unspecified hemorrhoids (principal); K57.30 Diverticulosis of large intestine without perforation or abscess without bleeding; D12.8 Benign neoplasm of rectum
CPT/HCPCS: 00813; 43239; 45385; 88305; 88313; 88342; J2704; 88312